=== PATIENT | female | born 1940 | race Caucasian/White ===

== ENCOUNTER 2019-07-04 17:23 | Inpatient (IN) | payer MEDICARE, BC ==
[~2019-07-04] VITALS: Ht 167.6 cm; Wt 90.9 kg
[2019-07-04] MEDS ORDERED: iohexol 350MG/ML 100ml bottle IV ONE (17:55)
[2019-07-04 18:12] LABS: PARTIAL THROMBOPLASTIN TIME 28 SECONDS (22-32)
[2019-07-04 18:14] LABS: ALANINE AMINOTRANSFERASE 34 U/L (12-78); ALBUMIN 3.9 G/DL (3.4-5.0); ALBUMIN/GLOBULIN RATIO 0.9 (1.1-1.5); ALKALINE PHOSPHATASE 91 IU/L (46-116); ANION GAP 10 (8-16); ASPARTATE AMINO TRANSFERASE 20 U/L (10-37); BILIRUBIN,TOTAL 0.5 MG/DL (0.1-1.0); BLOOD UREA NITROGEN 15 MG/DL (7-18); BUN/CREATININE RATIO 14.2 (6.6-38.0); CALCIUM 9.1 MG/DL (8.5-10.1); CHLORIDE 106 MMOL/L (99-107); CREATININE 1.06 MG/DL (0.40-0.90); GLUCOSE 109 MG/DL (70-104); POTASSIUM 4.2 MMOL/L (3.5-5.1); SODIUM 144 MMOL/L (135-145); TOTAL CARBON DIOXIDE 28.3 MMOL/L (24-32); TOTAL PROTEIN 8.1 G/DL (6.4-8.2); eGFR 50 ML/MIN
[2019-07-04 18:30] LABS: BASOPHILS # (AUTO) 0.1 X10'3 (0-0.2); BASOPHILS % (AUTO) 0.6 % (0-1); EOSINOPHILS # (AUTO) 0.2 X10'3 (0-0.9); EOSINOPHILS % (AUTO) 1.9 % (0-6); HEMATOCRIT 44.9 % (35.0-45.0); HEMOGLOBIN 15.1 g/dl (12.0-16.0); LYMPHOCYTES # (AUTO) 2.4 X10'3 (1.1-4.8); LYMPHOCYTES % (AUTO) 21.1 % (21-51); MEAN CORPUSCULAR HEMOGLOBIN 28.4 PG (27.0-31.0); MEAN CORPUSCULAR HGB CONC 33.6 g/dL (33.0-36.5); MEAN CORPUSCULAR VOLUME 84.7 FL (78-98); MEAN PLATELET VOLUME 10.8 FL (7.4-10.4); MONOCYTES # (AUTO) 0.9 X10'3 (0-0.9); MONOCYTES % (AUTO) 7.7 % (2-12); NEUTROPHILS # (AUTO) 7.7 X10'3 (1.8-7.7); NEUTROPHILS % (AUTO) 68.7 % (42-75); PLATELET COUNT 256 X10'3 (140-440); RED CELL DISTRIBUTION WIDTH 14.4 % (11.5-14.5); WHITE BLOOD COUNT 11.3 X10'3 (4.5-11.0)
[2019-07-04] MEDS ORDERED: SITA25TA3 PO (19:25)
[2019-07-04 19:26] LABS: LARGE PLATELETS FEW; PLATELET ESTIMATE NORMAL
[2019-07-04] MEDS ORDERED: LISI-600 PO (19:26)
[2019-07-04] MEDS ORDERED: CLOP75TA35 PO (19:26)
[2019-07-04] MEDS ORDERED: mag hydrox/Alum hydrox/simeth 30ml oral suspension PO PRN (19:40)
[2019-07-04] MEDS ORDERED: potassium Cl 20 mEq SR tablet PO PRN ×2 (19:40)
[2019-07-04] MEDS ORDERED: magnesium hydroxide 30ml (MOM) UD suspension PO PRN (19:40)
[2019-07-04] MEDS ORDERED: magnesium Cl slow-release 64mg tablet PO PRN (19:40)
[2019-07-04] MEDS ORDERED: magnesium 2GM in 50ml NS 50 ML IV PRN (19:40)
[2019-07-04] MEDS ORDERED: potassium CL 10mEq/100ml bag 100 ML IV PRN ×2 (19:40)
[2019-07-04] MEDS ORDERED: magnesium 4gm in 100ml NS 100 ML IV PRN (19:40)
[2019-07-04] MEDS ORDERED: ondansetron/PF 4mg/2ml inj IV PRN (19:40)
[2019-07-04] MEDS ORDERED: acetaminophen 325mg tablet PO PRN ×2 (19:40)
[2019-07-04] MEDS: K and/or MAG REPLACEMENT MC SCH (19:58)
--- NOTE | 2019-07-04 20:01 | NUR ---
Tele-neuro consult with neurologist in progress at bedside.
[2019-07-04 21:30] VITALS: BP 138/76
[2019-07-04 22:16] LABS: HEMOGLOBIN A1C 6.8 % (4.5-6.2)
[2019-07-04 22:17] LABS: CLARITY,URINE CLEAR (Clear); COLOR,URINE YELLOW (Yellow); GLUCOSE, URINE NEGATIVE (Neg); KETONES,URINE NEGATIVE (Neg); LEUKOCYTE ESTERASE ,URINE NEGATIVE (Neg); NITRITES, URINE NEGATIVE (Neg); OCCULT BLOOD,URINE NEGATIVE (Neg); PH,URINE 5.5 (4.8-8.0); PROTEIN,URINE NEGATIVE (Neg); UROBILINOGEN,URINE 0.2 E.U/dL (0.2-1.0)
[2019-07-04 22:19] LABS: UA COLLECTION TYPE CLN CATCH MIDSTREAM
[2019-07-04] MEDS: atorvastatin 20mg tablet PO SCH (23:02)
[2019-07-05 02:00] VITALS: BP 127/62
[2019-07-05 06:00] VITALS: BP 121/66
[2019-07-05 06:26] LABS: BASOPHILS # (AUTO) 0.1 X10'3 (0-0.2); EOSINOPHILS # (AUTO) 0.2 X10'3 (0-0.9); EOSINOPHILS % (AUTO) 2.1 % (0-6); RED BLOOD COUNT 4.87 X10'6 (4.20-5.60)
[2019-07-05 06:27] LABS: BASOPHILS % (AUTO) 1.1 % (0-1); HEMATOCRIT 41.5 % (35.0-45.0); LYMPHOCYTES # (AUTO) 2.5 X10'3 (1.1-4.8); LYMPHOCYTES % (AUTO) 24.5 % (21-51); MEAN CORPUSCULAR HEMOGLOBIN 28.8 PG (27.0-31.0); MEAN CORPUSCULAR HGB CONC 33.8 g/dL (33.0-36.5); MEAN CORPUSCULAR VOLUME 85.2 FL (78-98); MEAN PLATELET VOLUME 10.3 FL (7.4-10.4); MONOCYTES # (AUTO) 0.8 X10'3 (0-0.9); MONOCYTES % (AUTO) 7.8 % (2-12); NEUTROPHILS # (AUTO) 6.6 X10'3 (1.8-7.7); NEUTROPHILS % (AUTO) 64.5 % (42-75); PLATELET COUNT 244 X10'3 (140-440); RED CELL DISTRIBUTION WIDTH 13.9 % (11.5-14.5); WHITE BLOOD COUNT 10.2 X10'3 (4.5-11.0)
--- NOTE | 2019-07-05 06:30 | NUR ---
Patient in room ORTHO 4020. I have received report from Raman and had the opportunity to ask questions and assume patient care.
[2019-07-05 06:31] LABS: ALBUMIN 3.8 G/DL (3.4-5.0); ANION GAP 12 (8-16); BLOOD UREA NITROGEN 19 MG/DL (7-18); BUN/CREATININE RATIO 18.8 (6.6-38.0); CALCIUM 9.6 MG/DL (8.5-10.1); CHLORIDE 104 MMOL/L (99-107); CHOL/HDL RATIO 2.8 (0.00-4.99); CHOLESTEROL 144 MG/DL (0-200); CREATININE 1.01 MG/DL (0.40-0.90); GLUCOSE 127 MG/DL (70-104); HDL CHOLESTEROL 51 MG/DL (35-60); LDL CHOLESTEROL 83 MG/DL (50-100); MAGNESIUM 1.6 MG/DL (1.5-2.4); POTASSIUM 3.7 MMOL/L (3.5-5.1); SODIUM 141 MMOL/L (135-145); TOTAL CARBON DIOXIDE 25.5 MMOL/L (24-32); TRIGLYCERIDES 114 MG/DL (20-135); eGFR 53 ML/MIN
[2019-07-05 07:42] LABS: LARGE PLATELETS FEW; PLATELET ESTIMATE NORMAL
[2019-07-05] MEDS: heparin, porcine 5000 units/ml vial SQ SCH ×2 (07:50→21:16)
[2019-07-05] MEDS: clopidogrel 75mg tablet PO SCH (07:52)
[2019-07-05] MEDS: aspirin 81mg tablet.DR PO SCH (07:52)
[2019-07-05] MEDS: K and/or MAG REPLACEMENT MC SCH ×2 (08:00→20:00)
[2019-07-05] MEDS ORDERED: enoxaparin 40mg/0.4ml syringe SQ SCH (08:00)
[2019-07-05] MEDS: lisinopril 10 MG tablet PO SCH (08:00)
--- NOTE | 2019-07-05 08:02 | NUR ---
PAGER ID: [phone] MESSAGE: Kavita Marcano for Pippa Mccormack is it okay to hold the lisinopril since she is a rule out stroke? Viridiana 7911 BP 122/66
--- NOTE | 2019-07-05 08:14 | NUR ---
Dr. Marcano okayed to hold lisinopril
[2019-07-05 10:00] VITALS: BP 111/53
--- NOTE | 2019-07-05 10:08 | NUR ---
DM consult: Pt with A1c 6.8, DM education not warranted at this time. Will continue to follow. Addendum: 07/05/19 at [address] Amended: Links added.
[2019-07-05 14:00] VITALS: BP 103/64
--- NOTE | 2019-07-05 16:25 | NUR ---
PAGER ID: [phone] MESSAGE: Dr. Marcano patient Pippa Mccormack, her jenuvia is on hold, can we order the hypo/hyperglycemic protocol? Viridiana 2219
[2019-07-05] MEDS ORDERED: insulin Lispro (HumaLOG) vial - multi-dose SQ SCH (16:30)
[2019-07-05] MEDS ORDERED: dextrose 50%-water 50ml dispensing syringe IV PRN ×2 (16:30)
[2019-07-05] MEDS ORDERED: MESSAGE TO PHARMACY PO ONE (16:30)
[2019-07-05] MEDS ORDERED: glucagon, human recombinant 1mg kit SUBCUT PRN (16:30)
[2019-07-05] MEDS ORDERED: dextrose ORAL solution 15 GM/59 ML bottle PO PRN ×2 (16:30)
[2019-07-05 18:00] VITALS: BP 114/66
--- NOTE | 2019-07-05 18:12 | NUR ---
Patient report given to Raman BRANDT
--- NOTE | 2019-07-05 19:00 | NUR ---
Patient in room ORTHO 4020. I have received report from Viridiana BRANDT and had the opportunity to ask questions and assume patient care.
[2019-07-05] MEDS ORDERED: insulin glargine (Lantus) pen - multi-dose SQ SCH (21:00)
[2019-07-05] MEDS: atorvastatin 20mg tablet PO SCH (21:15)
[2019-07-05 22:00] VITALS: BP 124/67
[2019-07-06 01:34] VITALS: BP 118/67
[2019-07-06 05:00] VITALS: BP 148/64
[2019-07-06 06:10] LABS: BASOPHILS # (AUTO) 0.1 X10'3 (0-0.2); BASOPHILS % (AUTO) 0.9 % (0-1); EOSINOPHILS # (AUTO) 0.4 X10'3 (0-0.9); EOSINOPHILS % (AUTO) 4.9 % (0-6); HEMATOCRIT 41.4 % (35.0-45.0); LYMPHOCYTES # (AUTO) 2.5 X10'3 (1.1-4.8); LYMPHOCYTES % (AUTO) 30.2 % (21-51); MEAN CORPUSCULAR HEMOGLOBIN 28.6 PG (27.0-31.0); MEAN CORPUSCULAR HGB CONC 33.8 g/dL (33.0-36.5); MEAN CORPUSCULAR VOLUME 84.8 FL (78-98); MEAN PLATELET VOLUME 10.7 FL (7.4-10.4); MONOCYTES # (AUTO) 0.6 X10'3 (0-0.9); MONOCYTES % (AUTO) 7.1 % (2-12); NEUTROPHILS # (AUTO) 4.8 X10'3 (1.8-7.7); NEUTROPHILS % (AUTO) 56.9 % (42-75); PLATELET COUNT 230 X10'3 (140-440); RED BLOOD COUNT 4.89 X10'6 (4.20-5.60); WHITE BLOOD COUNT 8.4 X10'3 (4.5-11.0)
[2019-07-06 06:18] LABS: ALBUMIN 3.7 G/DL (3.4-5.0); ANION GAP 7 (8-16); BLOOD UREA NITROGEN 22 MG/DL (7-18); BUN/CREATININE RATIO 21.4 (6.6-38.0); CALCIUM 9.3 MG/DL (8.5-10.1); CHLORIDE 106 MMOL/L (99-107); CREATININE 1.03 MG/DL (0.40-0.90); GLUCOSE 121 MG/DL (70-104); MAGNESIUM 1.7 MG/DL (1.5-2.4); POTASSIUM 3.7 MMOL/L (3.5-5.1); SODIUM 142 MMOL/L (135-145); TOTAL CARBON DIOXIDE 28.7 MMOL/L (24-32); eGFR 52 ML/MIN
[2019-07-06 07:47] LABS: LARGE PLATELETS FEW; PLATELET ESTIMATE NORMAL
[2019-07-06] MEDS: K and/or MAG REPLACEMENT MC SCH (08:27)
[2019-07-06 09:00] VITALS: BP 117/68
[2019-07-06] MEDS: aspirin 81mg tablet.DR PO SCH (09:06)
[2019-07-06] MEDS: clopidogrel 75mg tablet PO SCH (09:06)
[2019-07-06] MEDS: lisinopril 10 MG tablet PO SCH (09:06)
[2019-07-06] MEDS: heparin, porcine 5000 units/ml vial SQ SCH (09:07)
--- NOTE | 2019-07-06 09:41 | NUR ---
PATIENT HAD AN EPISODE OF EXPRESSIVE APHASIA ONCE DURING NIH. Addendum: 07/06/19 at 0942 by Inez Tinsley RN Amended: Links added.
[2019-07-06 10:00] VITALS: BP 117/68
[2019-07-06] MEDS ORDERED: ASPI-1071 PO (14:32)
[2019-07-06] MEDS ORDERED: ATOR20TA66 PO (14:32)
--- NOTE | 2019-07-07 15:23 | NUR ---
Case Management DC follow-up: Telephone conv pt states she was well informed of healthcare needs and follow ups w/[facility] and S/S of strokes. Verbalized understanding of how to take medications and what they are for. Pt will be picking up meds today (. Follow up appt w/PCP made. pt denies pain, cp, SOB, resp distress, N/V, dizziness at time of telephone conversation.
== END 2019-07-06 14:52 | disposition home or self-care (01) | DRG 66 ==
LOC: ER 17:24 → ED HOLD 20:50 → ORTHO 4S 21:00
PROVIDERS: ADMIT Hospitalist; ATTEND Internal Medicine
PROC: B3251ZZ Computerized Tomography (CT Scan) of Bilateral Common Carotid Arteries using Low Osmolar Contrast (ICD-10-PCS; principal; 2019-07-04)
PROC: B32G1ZZ Computerized Tomography (CT Scan) of Bilateral Vertebral Arteries using Low Osmolar Contrast (ICD-10-PCS; 2019-07-04)
PROC: B3281ZZ Computerized Tomography (CT Scan) of Bilateral Internal Carotid Arteries using Low Osmolar Contrast (ICD-10-PCS; 2019-07-04)
DX: I63.9 Cerebral infarction, unspecified (principal); I10 Essential (primary) hypertension; R40.2410 Glasgow coma scale score 13-15, unspecified time; Z79.02 Long term (current) use of antithrombotics/antiplatelets; Z79.82 Long term (current) use of aspirin; Z85.3 Personal history of malignant neoplasm of breast; Z86.73 Personal history of transient ischemic attack (TIA), and cerebral infarction without residual deficits; Z91.048 Other nonmedicinal substance allergy status; Z90.49 Acquired absence of other specified parts of digestive tract
CPT/HCPCS: 36415; 70450; 70496; 70498; 70544; 70551; 71045; 80048; 80053; 80061; 81003; 82948; 83036; 83735; 85025; 85610; 85730; 86885; 86900; 86901; 87081; 93005; 93306; 97110; 97116; 97161; G0378; J1644; J1815; Q9967